=== PATIENT | female | born 1960 | race American Indian/Alaskan Native ===

== ENCOUNTER 2018-10-10 11:28 | Emergency (ER) | payer BC, OTHER ==
[~2018-10-10] VITALS: Ht 167.6 cm; Wt 72.6 kg
[~2018-10-10 11:28] MED LIST: ALPRAZOLAM 0.50.5 M1 PO; AMITRIPTYLINE H50 M2 PO; ASA81BEC; CLONAZEPAM 1 MG1 M1 PO; KEPPRA 500 MG500 M1 PO; METHOCARBAMOL750 MG PO; PHENERGAN25 M2 RC; PHENYTOIN SODI100 M3 PO; RESTORIL30 MG PO; VICODIN ES TAB1 EACH PO
[2018-10-10] MEDS ORDERED: LISINOPRIL10 MG PO (11:45)
[2018-10-10] MEDS ORDERED: OXYCODONE HCL15 MG PO (11:46)
[2018-10-10 12:07] LABS: URINE BILIRUBIN NEGATIVE (Negative); URINE BLOOD 1+ (Negative); URINE CLARITY CLEAR; URINE COLOR YELLOW; URINE GLUCOSE-RANDOM* NEGATIVE (Negative); URINE KETONES NEGATIVE (Negative); URINE LEUKOCYTES-REFLEX 3+ (Negative); URINE NITRITE-REFLEX NEGATIVE (Negative); URINE PROTEIN (DIPSTICK) NEGATIVE (Negative); URINE UROBILINOGEN 0.2 E.U./dl (0.2-1.0)
[2018-10-10 12:07] LABS: ABSOLUTE NEUTROPHILS 8.6 thou/uL (1.4-8.2); BASOPHILS 0.7 % (0.0-2.0); EOSINOPHILS 0.5 % (0.0-3.0); HEMATOCRIT 38.3 % (37.0-47.0); HEMOGLOBIN 13.6 gm/dL (12.0-15.0); LYMPHOCYTES 27.3 % (24.0-44.0); MCH 32.2 pg (26.0-34.0); MCHC 35.5 g/dL (28.0-37.0); MCV 90.8 fL (80.0-100.0); PLATELET COUNT 140 thou/uL (150-400); POLYS 64.5 % (36.0-66.0); RBC 4.23 mil/uL (4.20-5.00); RDW 12.1 % (10.5-14.5); WBC 13.3 thou/uL (4.0-11.0)
[2018-10-10 12:15] LABS: CALCIUM 9.9 mg/dL (8.5-10.1); CREATININE 1.3 mg/dL (0.6-1.0); POTASSIUM 3.6 mmol/L (3.5-5.1)
[2018-10-10 12:21] LABS: ALBUMIN 3.6 g/dL (3.4-5.0); TOTAL BILIRUBIN 0.6 mg/dL (<0.1-1.0); TOTAL PROTEIN 7.6 g/dL (6.4-8.2)
[2018-10-10 12:28] LABS: CASTS None Seen /LPF (None Seen); SQUAMOUS 0-3 Few /LPF (0-3); URINE RBC 0-2 Rare /HPF (0-2); URINE WBC-REFLEX >25 Many /HPF (0-5)
[2018-10-10 12:29] LABS: BACTERIA-REFLEX 1-9 Few /HPF (None Seen); CRYSTALS None Seen /LPF (None Seen); WBC CLUMPS Moderate (None Seen)
[2018-10-10] MEDS ORDERED: BACTRIM DS TAB1 EACH PO (12:34)
[2018-10-10] MEDS ORDERED: PHENAZOPYRIDIN200 M2 PO (12:34)
[2018-10-10 12:59] VITALS: BP 109/68
== END 2018-10-10 13:08 | disposition home or self-care (01) ==
LOC: ER 11:28
PROVIDERS: Emergency Medicine
DX: N30.00 Acute cystitis without hematuria (principal); G47.30 Sleep apnea, unspecified; Z90.721 Acquired absence of ovaries, unilateral; Z88.6 Allergy status to analgesic agent; Z88.8 Allergy status to other drugs, medicaments and biological substances; Z98.890 Other specified postprocedural states; Z90.49 Acquired absence of other specified parts of digestive tract